=== PATIENT | female | born 2000 | race Two or more races ===

== ENCOUNTER 2025-01-15 18:11 | Emergency (ER) | payer MEDICAID ==
[~2025-01-15] VITALS: Ht 157.5 cm; Wt 79.8 kg
[2025-01-15] MEDS ORDERED: ONDANSETRON HCL/PF 4 MG/2 ML VIAL ONE ×2 (19:12→20:20)
[2025-01-15] MEDS ORDERED: KETOROLAC TROMETHAMINE INJ 30 MG/ML VIAL ONE (19:13)
[2025-01-15] MEDS ORDERED: HYDROCODONE/APAP 5/325MG TABLET ONE (19:13)
[2025-01-15] MEDS: IV NS 0.9% 1,000 ML IV ONE (19:21)
[2025-01-15 19:22] LABS: PLATELET COUNT (AUTO) 252 K/uL (150-450); RED BLOOD CELL COUNT(AUTO) 3.71 MIL/uL (4.0-5.2); RED CELL DISTRIBUTION WIDTH 12.6 % (11.5-15.0); WHITE BLOOD COUNT (AUTO) 11.8 K/uL (4.3-11.0)
[2025-01-15] MEDS: ONDANSETRON HCL/PF 4 MG/2 ML VIAL IVP ONE (19:23)
[2025-01-15] MEDS: KETOROLAC TROMETHAMINE INJ 30 MG/ML VIAL IV ONE (19:25)
[2025-01-15] MEDS: HYDROCODONE/APAP 5/325MG TABLET PO ONE (19:26)
[2025-01-15 19:34] LABS: CALCIUM, SERUM 9.1 mg/dL (8.5-10.1); CREATININE 0.6 mg/dL (0.6-1.3); SODIUM SERUM 136.0 mmol/L (136-145); UREA NITROGEN, BLOOD 10.0 mg/dL (7-18)
[2025-01-15] MEDS ORDERED: OXYC-128 PO (19:52)
[2025-01-15] MEDS ORDERED: MORPHINE SULFATE INJ 2 MG/ML DISP.SYRIN ONE (20:20)
[2025-01-15] MEDS: ONDANSETRON HCL/PF - ER 4 MG/2 ML VIAL IV ONE (20:26)
[2025-01-15] MEDS: MORPHINE SULFATE INJ 2 MG/ML DISP.SYRIN IV ONE (20:26)
[2025-01-15] MEDS ORDERED: ONDA4TAB11 PO (20:46)
[2025-01-15 20:58] VITALS: BP 112/76; TEMP 98.3; O2SAT 96
== END 2025-01-15 20:59 | disposition home or self-care (01) ==
LOC: ER 18:24
DX: R10.2 Pelvic and perineal pain (principal); R11.2 Nausea with vomiting, unspecified; F17.200 Nicotine dependence, unspecified, uncomplicated; Z60.2 Problems related to living alone
CPT/HCPCS: 99284; 96374; 96375; 96361; 96376; 85025; 80048; 36415; J1885; J2405 ×2; J7030; J2270

== ENCOUNTER 2025-04-17 21:08 | Emergency (ER) | payer MEDICAID, OTHER ==
[~2025-04-17] VITALS: Ht 162.6 cm; Wt 77.1 kg
[~2025-04-17 21:08] MED LIST: ONDA4TAB11 PO; OXYC-128 PO
[2025-04-17 21:22] VITALS: BP 133/71; TEMP 98.6; O2SAT 98
[2025-04-17] MEDS: LIDOCAINE 1% INJ 50 ML MDV IJ ONE (22:00)
[2025-04-17] MEDS ORDERED: CLIN300C12 PO (22:21)
[2025-04-17] MEDS ORDERED: ACET325T53 PO (22:21)
[2025-04-17] MEDS ORDERED: IBUP-1490 PO (22:21)
== END 2025-04-17 22:45 | disposition home or self-care (01) ==
LOC: ER 21:22
DX: L03.032 Cellulitis of left toe (principal); W22.8XXA Striking against or struck by other objects, initial encounter; Y93.89 Activity, other specified; Y92.89 Other specified places as the place of occurrence of the external cause; Y99.9 Unspecified external cause status